=== PATIENT | female | born 1945 | race Caucasian/White ===

== ENCOUNTER 2016-11-25 10:28 | Inpatient (IN) | payer OTHER ==
[2016-11-10 12:07] VITALS: BMI 38.7
--- NOTE | 2016-11-24 10:20 | HP ---
[facility] - Chief Complaint Chief Complaint: left knee pain - Past Medical History Allergies/Adverse Reactions: Allergies Allergy/AdvReac Type Severity Reaction Status Date / Time No Known Allergies Allergy Verified 11/10/16 12:08 - Current Medications Current Medications: Home Medications Medication Instructions Recorded Aspirin Coated [Ecotrin -] 81 mg PO DAILY 11/10/16 Atorvastatin Ca [Lipitor] 10 mg PO DAILY 11/10/16 Diclofenac Sodium [Diclofenac 100 mg PO DAILY 11/10/16 Sodium ER] [place]-3S/Dha/Epa/Fish Oil [Fish 1,200 mg PO DAILY 11/10/16 Oil 1,200 mg Softgel] RX: Lisinopril 5 mg PO DAILY 11/10/16 Ranitidine HCl [Zantac] 150 mg PO BID 11/10/16 Satellite Physical Exam - Physical Examination General Appearance: Well Nourished, Well Developed, Alert & Oriented x3 ENT: Clear Lung: Normal air movement Heart: Regular rate & rhythm Extremities: Other (left knee- + swelling, + ttp, + decr rom, nvi xrays show tricompartmental djd) Neurological: Intact, Alert, Oriented Satellite Impression/Plan - Impression/Plan Impression: left knee djd Operative Procedure: left bushra tkr Date to be Performed: 11/25/16
[2016-11-25] MEDS ORDERED: GABAPENTIN 300 MG CAPSULE (FP) PO ONE (11:20)
[2016-11-25] MEDS ORDERED: CEFAZOLIN 2 GM in DEXTROSE 5%-WATER - 50 ML IVPB ONE (11:20)
[2016-11-25] MEDS ORDERED: TRANEXAMIC ACID 1000 MG/10 ML VIAL IVPUSH ONE (11:20)
[2016-11-25] MEDS ORDERED: CELECOXIB 200 MG CAPSULE PO ONE (11:20)
[2016-11-25] MEDS ORDERED: oxyCODONE HCL 10 MG SUSTAINED ACTING TABLET ONE (11:23)
[2016-11-25] MEDS ORDERED: SODIUM CHLORIDE 0.9% P/F 10 ML VIAL IJ ONE (12:28)
[2016-11-25] MEDS ORDERED: ceFAZolin SODIUM 1 GM VIAL ONE (12:28)
[2016-11-25] MEDS ORDERED: DEXAMETHASONE SOD PHOSPHATE/PF 10 MG/ML SDV ONE (12:28)
[2016-11-25] MEDS ORDERED: BUPIVACAINE HCL/PF (5 MG/ML) 30 ML VIAL IJ ONE (12:29)
[2016-11-25] MEDS ORDERED: MIDAZOLAM HCL 2 MG/2 ML SINGLE DOSE VIAL ONE (12:29)
[2016-11-25] MEDS ORDERED: BUPIVACAINE HCL/PF 0.5% (5MG/ML) 10 ML VIAL ONE (14:01)
[2016-11-25] MEDS ORDERED: MAG HYDROX/AL HYDROX/SIMETH 30 ML UNIT-DOSE CUP PO PRN (16:22)
[2016-11-25] MEDS ORDERED: ONDANSETRON 4 MG/2 ML VIAL IVPB PRN (16:22)
[2016-11-25] MEDS ORDERED: MAGNESIUM HYDROX 2400MG/30ML ORAL SUSPENSION 30 ML CUP PO PRN (16:22)
--- NOTE | 2016-11-25 16:25 | OP ---
Operative Note - Note: Operative Date: 11/25/16 (vanda) Pre-Operative Diagnosis: left knee djd Operation: left bushra tkr Post-Operative Diagnosis: Same as Pre-op Surgeon: Carlos Larios Dispatcher Tugboat: Obinna Hogue Anesthesiologist/BREAD BAKER: Kait Williamson Anesthesia: Spinal, Local Specimens Removed: bone fragments Estimated Blood Loss (mls): 50 (tourniquet) Operative Report Dictated: Yes
[2016-11-25] MEDS ORDERED: LACTATED RINGERS SOLUTION 1,000 ML IV SCH (16:30)
[2016-11-25] MEDS ORDERED: oxyCODONE HCL 5 MG TABLET PO PRN (16:53)
[2016-11-25] MEDS: ACETAMINOPHEN 325 MG TABLET (FP) PO SCH ×2 (18:00→22:05)
[2016-11-25] MEDS ORDERED: ACETAMINOPHEN 325 MG TABLET (FP) ONE (18:13)
[2016-11-25] MEDS: CEFAZOLIN 2 GM in DEXTROSE 5%-WATER - 50 ML IVPB SCH (20:20)
[2016-11-25] MEDS: oxyCODONE HCL 5 MG TABLET PO PRN (21:58)
[2016-11-25] MEDS: SENNOSIDES/DOCUSATE COMBO (SENNA PLUS) TABLET (UD) PO SCH (21:58)
[2016-11-25] MEDS: ATORVASTATIN CA 10 MG TABLET (FP) PO SCH (21:59)
[2016-11-25] MEDS: GABAPENTIN 300 MG CAPSULE (FP) PO SCH (21:59)
[2016-11-25] MEDS: oxyCODONE HCL 10 MG SUSTAINED ACTING TABLET PO SCH (21:59)
[2016-11-26] MEDS ORDERED: ACETAMINOPHEN 325 MG TABLET (FP) ONE (03:41)
[2016-11-26] MEDS: CEFAZOLIN 2 GM in DEXTROSE 5%-WATER - 50 ML IVPB SCH (03:50)
[2016-11-26] MEDS: ACETAMINOPHEN 325 MG TABLET (FP) PO SCH ×3 (06:24→22:36)
--- NOTE | 2016-11-26 07:37 | PN ---
Progress Note (short form) - Note Progress Note: Ortho Pt seen and examined s/p left bushra tkr pod #1 Selected Entries 11/26/16 04:00 Temperature 98.1 F Pulse Rate 81 Respiratory 19 Rate Blood Pressure 130/64 dressing c/d/i, calf soft, nt rom 0-40, nvi cbc pending a/p PT dvt ppx pain control d/c home tomorrow if stable
[2016-11-26] MEDS: ASPIRIN 325 MG TABLET PO SCH (08:22)
[2016-11-26] MEDS: oxyCODONE HCL 5 MG TABLET PO PRN (08:28)
[2016-11-26 08:59] LABS: MCH 28.7 pg (25.7-33.7); MCHC 33.1 g/dl (32.0-36.0); MEAN CELL VOLUME 86.6 fl (80-96); MEAN PLT VOLUME 8.9 fl (7.5-11.1); PLATELET COUNT 291 K/MM3 (134-434); RDW 13.9 % (11.6-15.6); WHITE BLOOD COUNT 9.7 K/mm3 (4.0-10.8)
--- NOTE | 2016-11-26 08:59 | SPEC ---
DATE OF OPERATION: 11/25/2016 DATE OF DICTATION: 11/26/2016 PREOPERATIVE DIAGNOSIS: Degenerative joint disease, left knee. POSTOPERATIVE DIAGNOSIS: Degenerative joint disease, left knee. PROCEDURE: Left total knee replacement with robotic-assisted navigation (MAKOplasty). SURGICAL ATTENDING: Carlos Larios MD CHICKEN PICKER: KIMMIE Jameson ANESTHESIA: Spinal and regional. CLOSURE: A Triathlon knee system with a 3 femur, a 3 tibia, a 13 TS polyethylene, a 32 patella. A number 1 Vicryl fascia, 0 and 2-0 for subcutaneous, and 3-0 Monocryl subcuticular with skin glue for skin. ESTIMATED BLOOD LOSS: Negligible. TOURNIQUET TIME: Approximately 90 minutes. COMPLICATIONS: No complications CONDITION: To recovery room in stable condition. DESCRIPTION OF PROCEDURE: Patient was taken to the operating room on November 25, 2016. Regional and spinal anesthesia were administered by the anesthesiologist. IV antibiotics and TXA were administered prophylactically prior to the case. A well-padded pneumatic tourniquet was placed on the left proximal thigh. The left lower extremity was prepped and draped in the usual sterile fashion. An approximately 12-cm midline incision centered over the patella was incised. Hemostasis was achieved with Bovie cautery. Sharp dissection was carried down to the level of the extensor mechanism the procedure. The medial parapatellar arthrotomy was then performed. The patella was inverted and the knee was flexed up to 90 degrees. Subperiosteal dissection was performed on the anteromedial proximal tibia until the knee was able to be brought forward. This was facilitated by taking the ACL, the PCL, and the medial and lateral menisci. A checkpoint was malleted into the medial femoral condyle and into the anteromedial proximal tibia. Through two small stab incisions in the mid femur and two in the mid tibia, two bicortical pins were drilled, achieving excellent height. Two of these pins were attached to the navigation arrays. The knee was then registered with the navigation device by rotating the hip to ascertain the center of rotation of the hip with points on both the medial and lateral malleoli and multiple points on both the femur and on the tibia. Excellent registration was confirmed by "popping the bubbles". At this time, the osteophytes on the edges of the proximal tibia both medially and laterally, as well as on the medial lateral femoral condyles underneath the collateral ligaments were debrided. The knee was stressed in extension and in flexion to confirm good gaps. The virtual positions of the components were then optimized in order to have a balanced knee, both in extension and in 90 degrees of flexion. The sizes of the components were also optimized to get good coverage over both the tibia and the femur and to produce equal gaps in extension and flexion with the appropriate amount of external rotation of the femur, the appropriate amount of flexion of the femoral component and the appropriate slope on the tibial component. At this time, the robot was brought into the field and registered. The robot was used to cut the proximal tibia and to make all the cuts on the distal femur. The bone was then removed. A spacer block in extension and flexion was used to confirm equal balancing of the component in both extension and 90 degrees of flexion. The box for the posterior cruciate sacrificing component was then performed and a trial component on the femur and tibia was applied. The femoral component was clipped into place with the appropriate external rotation. This was confirmed by the navigation device, ensuring the appropriate position of the tibial component on the proximal tibia. The patella was calipered for thickness and osteotomized at the appropriate level. A lollipop was used to drill the three lugholes in the patella and then a trial component was applied. The knee was taken through a range of motion and found to have excellent tracking of the patella from full extension to full flexion, with good stability, varus/valgus throughout range of motion. The trial components were then removed. Before removing the tibial tray, the keyhole was made. The knee was then thoroughly irrigated with antibiotic irrigation. The real components were then cemented in, using modern generation cement techniques with antibiotic cement and pressurization. After the cement was hardened, the knee was thoroughly inspected to remove all excess cement. The real polyethylene component was then clipped into place. Again, range of motion, stability and tracking were found to be excellent throughout. The knee was then pulse antibiotic irrigated and dried. Vancomycin powder was placed into the knee. The checkpoints were removed. The medial parapatellar arthrotomy was then closed using number 1 Vicryl interrupted suture. The knee was again taken through range of motion and found to have no undue tension on the repair and good tracking throughout. The subcutaneous was closed with 0 and 2-0 Vicryl and 3-0 Monocryl subcuticular for skin with skin glue. The pins were removed in the femur and the tibia and pulse antibiotic irrigated and closed with 4-0 undyed Vicryl. Sterile Aquacel dressing followed by a Leo dressing was applied. The tourniquet was then deflated. One more dose of TXA was administered at the end of the case. The patient was awakened from anesthesia and transferred to the recovery room in stable condition. X-rays revealed good position of the components. There were no complications. Estimated blood loss was negligible. Total tourniquet time was approximately 90 minutes. Haylee [id number]
[2016-11-26] MEDS: oxyCODONE HCL 10 MG SUSTAINED ACTING TABLET PO SCH ×2 (10:06→22:37)
[2016-11-26] MEDS: SENNOSIDES/DOCUSATE COMBO (SENNA PLUS) TABLET (UD) PO SCH ×2 (10:06→22:36)
[2016-11-26] MEDS: GABAPENTIN 300 MG CAPSULE (FP) PO SCH ×2 (10:06→22:36)
[2016-11-26] MEDS: MULTIVITAMINS (DAILY MVI) TABLET (FP) PO SCH (10:07)
[2016-11-26] MEDS: PANTOPRAZOLE 40 MG TABLET (FP) PO SCH (10:07)
[2016-11-26] MEDS: LISINOPRIL 5 MG TABLET (FP) PO SCH (10:07)
--- NOTE | 2016-11-26 12:55 | PN ---
Progress Note (short form) - Note Progress Note: Anesthesia postop note S/P left total knee replacement, POD#1. Spinal and block. Pat seen and examined. Intact sensory and motor function. Ambulationg. Started PT. VSS No apparent post ansesthesia complications.
[2016-11-26] MEDS: ATORVASTATIN CA 10 MG TABLET (FP) PO SCH (22:36)
[2016-11-27] MEDS: ACETAMINOPHEN 325 MG TABLET (FP) PO SCH ×2 (06:00→10:19)
--- NOTE | 2016-11-27 08:19 | PN ---
Progress Note (short form) - Note Progress Note: Ortho Pt seen and examined s/p left bushra tkr pod #2 Selected Entries 11/27/16 06:35 Temperature 98.6 F Pulse Rate 108 H Respiratory 20 Rate Blood Pressure 108/53 Laboratory Tests 11/26/16 07:35 WBC 9.7 Hgb 11.6 Plt Count 291 dressing c/d/i, calf soft, nt rom 0-40, nvi a/p PT dvt ppx pain control d/c home today f/u in 1 week
--- NOTE | 2016-11-27 08:20 | DS ---
Physical Examination Vital Signs: Vital Signs Temperature 98.6 F 11/27/16 06:35 Pulse Rate 108 H 11/27/16 06:35 Respiratory Rate 20 11/27/16 06:35 Blood Pressure 108/53 11/27/16 06:35 O2 Sat by Pulse Oximetry (%) 98 11/27/16 06:35 Labs: CBC, BMP 11/26/16 07:35 Discharge Summary Reason For Visit: OSTEOARTHRITIS Procedures: Principal: s/p left bushra tkr Hospital Course: admitted for elective left bushra tkr, uneventful post-op, stable for d/c Condition: Good - Instructions Diet, Activity, Other Instructions: Post-op Instructions-Total Knee Replacement Call the office for a follow-up appointment in 1 week - [phone] Aspirin 325mg daily for 6 weeks. Pain medication was sent into your pharmacy. Apply Graduated Compression Stockings (TEDs) to both lower extremities- remove daily for hygiene ONLY Apply Sequential Compression Device (SCDs) to both Lower extremities remove for PT and hygiene ONLY Apply cold packs to affected area for 15 minutes every 2 hours. Physical Therapist will come to your home for the first 5 days. You will be set up with outpatient PT at your first post-operative visit. Patient may ambulate as tolerated-encourage self care (at least every 2-3 hours while awake) with walker or cane Maintain Aquacel (waterproof) dressing to operative wound (will be removed by surgeon at first office visit) Shower with Aquacel dressing in place-if Aquacel integrity compromised, remove and apply dry sterile dressing and notify Orthopedist. DO NOT SHOWER unless Orthopedists approves without Aquacel dressing CONTACT THE OFFICE FOR ANY CHANGE IN YOUR CONDITION (for example-fever greater than 102 degrees,excessive bleeding from operative site, purulent drainage, severe swelling or pain) GO TO THE EMERGENCY ROOM IF THERE IS A MEDICAL EMERGENCY Knee Precautions: * Keep a rolled towel under affected heel while in bed or chair (to keep knee in extension) * Keep affected leg elevated except during mealtimes * DO NOT PLACE PILLOW UNDER AFFECTED KNEE * If you have any questions, please do not hesitate to call the office - [phone]. Referrals: Carlos Larios MD [Staff Physician] - Disposition: VNS/HOME HEALTH CARE - Home Medications Comprehensive Discharge Medication List: Ambulatory Orders Atorvastatin Ca [Lipitor] 10 mg PO DAILY 11/10/16 Diclofenac Sodium [Diclofenac Sodium ER] 100 mg PO DAILY 11/10/16 Lisinopril 5 mg PO DAILY 11/10/16 [place]-3S/Dha/Epa/Fish Oil [Fish Oil 1,200 mg Softgel] 1,200 mg PO DAILY Ranitidine HCl [Zantac] 150 mg PO BID 11/10/16 Aspirin [ASA -] 325 mg PO DAILY@0800 tablet 11/25/16 Oxycodone HCl/Acetaminophen [Percocet 5-325 mg Tablet -] 1 - 2 tab PO Q6H #50 tab MDD 8 11/25/16
[2016-11-27 08:35] LABS: MCH 29.3 pg (25.7-33.7); MEAN CELL VOLUME 86.3 fl (80-96); MEAN PLT VOLUME 8.5 fl (7.5-11.1); PLATELET COUNT 273 K/MM3 (134-434); WHITE BLOOD COUNT 13.1 K/mm3 (4.0-10.8)
[2016-11-27] MEDS: ASPIRIN 325 MG TABLET PO SCH (09:00)
[2016-11-27] MEDS: PANTOPRAZOLE 40 MG TABLET (FP) PO SCH (10:18)
[2016-11-27] MEDS: LISINOPRIL 5 MG TABLET (FP) PO SCH (10:19)
[2016-11-27] MEDS: oxyCODONE HCL 10 MG SUSTAINED ACTING TABLET PO SCH (10:19)
[2016-11-27] MEDS: GABAPENTIN 300 MG CAPSULE (FP) PO SCH (10:19)
[2016-11-27] MEDS: SENNOSIDES/DOCUSATE COMBO (SENNA PLUS) TABLET (UD) PO SCH (10:19)
[2016-11-27] MEDS: MULTIVITAMINS (DAILY MVI) TABLET (FP) PO SCH (10:19)
[2016-11-27 10:27] VITALS: BP 114/51; PULSE 102; TEMP 98
--- NOTE | 2016-11-27 16:26 | PATH ---
Surgical Pathology Report Patient Name: MALCOM TAMEZ Med. Rec. #: [id number] /Age/Gender: 1945 (Age: 71) / F Account: [id number] [facility] Taken: 11/25/2016 Received: 11/25/2016 Reported: 11/27/2016 Physicians: Carlos Larios M.D. Specimen(s) Received LEFT KNEE BONES Clinical History Osteoarthritis Final Diagnosis BONE AND SOFT TISSUE, LEFT KNEE, REPLACEMENT: DEGENERATIVE JOINT DISEASE. Electronically Signed Mitchell Carbajal M.D. Gross Description Received in formalin labeled "left knee bones," is a 10.5 x 9.0 x 1.9 cm aggregate of multiple irregular portions of bone and soft tissue. The tibial plateau measures 7.5 x 5.0 x 1.6 cm. There is a 1.2 cm in greatest dimension area of eburnation identified. The articular surfaces are dennis-yellow and focally granular. The underlying trabecular bone is yellow and hard. Angle Shear Set Up Operator sections are submitted in one cassette, following decalcification. 11/26/2016 [facility]11/26/2016
== END 2016-11-27 12:36 | disposition home health service (06) | DRG 470 ==
LOC: FM/S 10:28
PROVIDERS: ADMIT Orthopaedic Surgery; ATTEND Orthopaedic Surgery
PROC: 8E0Y0CZ Robotic Assisted Procedure of Lower Extremity, Open Approach (ICD-10-PCS; 2016-11-25)
PROC: 0SRD0J9 Replacement of Left Knee Joint with Synthetic Substitute, Cemented, Open Approach (ICD-10-PCS; principal; 2016-11-25 14:40)
DX: M17.12 Unilateral primary osteoarthritis, left knee (principal); K21.9 Gastro-esophageal reflux disease without esophagitis; E66.01 Morbid (severe) obesity due to excess calories; Z68.38 Body mass index [BMI] 38.0-38.9, adult; I10 Essential (primary) hypertension; E78.5 Hyperlipidemia, unspecified
CPT/HCPCS: 36415; 73560-TC-LT; 85027; 88305-TC; 88311-TC; 94010; 94760; 97116-GP; 97162-GP

== ENCOUNTER 2017-10-06 05:43 | Inpatient (IN) | payer OTHER ==
[2017-09-28 10:15] VITALS: BMI 40.1
[2017-10-06] MEDS ORDERED: CEFAZOLIN 2 GM/D5W 2 GM/50 ML ML IVPB ONE (06:12)
[2017-10-06] MEDS ORDERED: TRANEXAMIC ACID 1000 MG/10 ML VIAL IVPUSH ONE (06:12)
[2017-10-06] MEDS ORDERED: GABAPENTIN 300 MG CAPSULE (FP) PO ONE (06:12)
[2017-10-06] MEDS ORDERED: CELECOXIB 200 MG CAPSULE PO ONE (06:12)
[2017-10-06] MEDS ORDERED: GABAPENTIN 300 MG CAPSULE (FP) ONE (06:15)
[2017-10-06] MEDS ORDERED: CELECOXIB 200 MG CAPSULE ONE (06:16)
[2017-10-06] MEDS ORDERED: VANCOMYCIN 1,000 MG VIAL (RESTRICTED TO ID ONLY) ONE (07:21)
[2017-10-06] MEDS ORDERED: ceFAZolin SODIUM 1 GM VIAL ONE (07:21)
[2017-10-06] MEDS ORDERED: BUPIVACAINE LIPOSOME/PF (EXPAREL) 266 MG/20 ML VIAL ONE (07:27)
[2017-10-06] MEDS ORDERED: MIDAZOLAM HCL 2 MG/2 ML SINGLE DOSE VIAL ONE (07:27)
[2017-10-06] MEDS ORDERED: SODIUM CHLORIDE 0.9% P/F 10 ML VIAL IJ ONE (07:27)
[2017-10-06] MEDS ORDERED: BUPIVACAINE HCL/PF (5 MG/ML) 30 ML VIAL IJ ONE (07:27)
[2017-10-06] MEDS ORDERED: DEXAMETHASONE SOD PHOSPHATE/PF 10 MG/ML SDV ONE (07:27)
--- NOTE | 2017-10-06 07:54 | HP ---
[facility]ellite [facility] - Chief Complaint Chief Complaint: right knee pain - Past Medical History Allergies/Adverse Reactions: Allergies Allergy/AdvReac Type Severity Reaction Status Date / Time No Known Allergies Allergy Verified 09/28/17 10:08 - Current Medications Current Medications: Home Medications Medication Instructions Recorded Atorvastatin Ca [Lipitor] 10 mg PO Q2D 11/10/16 Lisinopril 5 mg PO DAILY 11/10/16 Ranitidine HCl [Zantac] 150 mg PO BID 11/10/16 Aspirin [ASA -] 81 mg PO DAILY 09/28/17 Ferrous Sulfate [Feosol] 325 mg PO DAILY 09/28/17 Satellite Physical Exam - Physical Examination Vital Signs: Vital Signs Period Temp Pulse Resp BP Sys/Underwood Pulse Ox Last 24 Hr 98.2 F 102 18 135/76 General Appearance: Well Nourished, Well Developed, Alert & Oriented x3 ENT: Clear Lung: Normal air movement Heart: Regular rate & rhythm Extremities: Other (right knee- + swelling, + ttp, decr rom, nvi xrays show grade 4 tricompartmental djd) Neurological: Intact, Alert, Oriented Satellite Impression/Plan - Impression/Plan Impression: right knee djd Operative Procedure: right bushra tkr Date to be Performed: 10/06/17
[2017-10-06] MEDS ORDERED: VANCOMYCIN 1,000 MG VIAL (RESTRICTED TO ID ONLY) IVPB ONE (09:42)
[2017-10-06] MEDS ORDERED: MAGNESIUM HYDROX 2400MG/30ML ORAL SUSPENSION 30 ML CUP PO PRN (10:09)
[2017-10-06] MEDS ORDERED: ONDANSETRON 4 MG/2 ML VIAL IVPUSH PRN (10:09)
[2017-10-06] MEDS ORDERED: MAG HYDROX/AL HYDROX/SIMETH 30 ML UNIT-DOSE CUP PO PRN (10:09)
--- NOTE | 2017-10-06 10:11 | OP ---
Operative Note - Note: Operative Date: 10/06/17 (vanda) Pre-Operative Diagnosis: right knee djd Operation: right bushra tkr Post-Operative Diagnosis: Same as Pre-op Surgeon: Carlos Larios Glass Selector: Obinna Hogue Anesthesiologist/PAYABLE MANAGER: Geremias Mcpherson Anesthesia: Spinal, Local Specimens Removed: bone fragments Estimated Blood Loss (mls): 100 Operative Report Dictated: Yes
[2017-10-06] MEDS ORDERED: LACTATED RINGERS SOLUTION 1,000 ML IV SCH (10:15)
--- NOTE | 2017-10-06 10:20 | SPEC ---
DATE OF OPERATION: 10/06/2017 PREOPERATIVE DIAGNOSIS: Degenerative joint disease, right knee. POSTOPERATIVE DIAGNOSIS: Degenerative joint disease, right knee. PROCEDURE: Right total knee replacement with robotic-assisted navigation (Makoplasty). SURGICAL ATTENDING: Carlos Larios M.D. MANAGER DELIVERY: Pelon Jameson ANESTHESIA: Regional and spinal. CLOSURE: A 4 femur, 4 tibia, 11 polyethylene TS, and a 32 patella, number 1 Vicryl for fascia, 0 and 2-0 for subcutaneous, and 3-0 Monocryl subcuticular with skin glue for skin, 4-0 undyed Vicryl for pin site. ESTIMATED BLOOD LOSS: 100 mL COMPLICATIONS: None. CONDITION: To recovery room in stable condition. DESCRIPTION OF OPERATIVE PROCEDURE: Patient was taken to the operating room on October 06, 2017. Regional and general anesthesia was administered by the anesthesiologist. IV Kefzol and TXA were administered by the anesthesiologist. Well-padded pneumatic tourniquet was placed on the proximal thigh. The right lower extremity was prepped and draped in the usual sterile fashion. The leg was exsanguinated with an Esmarch bandage, and tourniquet was inflated to 275 mmHg. A 12 to 15-cm longitudinal midline incision was incised while centered over the patella. The dissection was carried down to the level of the extensor mechanism with sufficient flaps made to adequately perform the procedure. A medial parapatellar arthrotomy was then performed. We made a cuff of tissue on the patella for later closure. The patella was inverted, the knee was flexed up. The fat pad was excised. The subperiosteal dissection was on the anteromedial proximal tibia around towards the direction of the MCL. The ACL and the PCL were transected and debrided. The meniscal remnants of the medial and lateral meniscus were debrided and removed. This allowed the knee to be able to "be brought forward." The checkpoints were malleted into the tibia and into the femur. Two threaded pins were drilled anteroposteriorly proximal to the knee through the previous incision, through the anterior cortex, then just engaging the posterior cortex. To these pins was assembled the femoral navigation array. One handbreadth below the tibial tubercle, 2 stab incisions were used to drill 2 threaded pins in parallel fashion into the tibia, again through the anterior cortex and just engaging the posterior cortex. To these pins was fastened the tibial arrays. The knee was then registered with the navigation device with center of rotation of the hip, medial and lateral malleoli, both checkpoints, and multiple points on both the femur and the tibia to ensure excellent registration. The navigation device was directed off the "top of the bubbles" on both the femur and the tibia. The navigation passed within less than 0.5 mm to plan. The knee was then thoroughly inspected to remove all osteophytes both medially, laterally, and on the femur and the tibia, and whatever osteophytes were available for dissection. The knee was then taken to extension and to flexion, and stressed in both varus and valgus to assess flexion gaps. The virtual position of the components on the navigation device were then manipulated to optimize the position and to ensure equal gaps in both flexion and extension, and both medially and laterally. The robot was then brought into the field and was registered. The cuts were then made both on the femur and on the tibia as to plan. All osteophytes posteriorly were then removed as well. The gaps were then measured again in flexion and extension to be equal in both flexion and extension and medial and laterally. The femoral notch was then made, as we were doing a posterior stabilizing component, with the appropriate sized box. Trial reduction of the femur achieved excellent [id number] fit. A tibial baseplate of appropriate polyethylene thickness was "floated in the knee." It was ensured to be in the excellent position by navigation devices and was pinned in place. The knee was taken through a range of motion, and found to have excellent stability throughout flexion and extension. The patella was calibrated for thickness and osteotomized down to the appropriate level. The appropriate lollipop was used to drill the lug holes in the patella and the trial button was applied. The knee was taken through a range of motion and found to have excellent tracking of the patella, and patella from full extension to full flexion. Trial components were removed, the keel was punched and drilled, and a sclerotic bone on the tibia was drilled to help with cement interdigitation. The knee was thoroughly irrigated with the pulse antibiotic brand attendant. The real components were then cemented in using monitored arrangement cement techniques with antibiotic cement, and pressurization and extension. After the cement was hardened, the knee was thoroughly inspected to remove any extra cement. The real polyethylene component was then clipped into place. Range of motion, stability, and tracking were as described earlier. The checkpoints and the pins were removed. The knee was thoroughly irrigated with antibiotic irrigation. Vancomycin powder was placed into the knee for antibiotic prophylaxis. The medial parapatellar arthrotomy was then closed using number 1 Vicryl interrupted suture. After closure of the deep layer, the knee was taken through a range of motion, and found to have excellent stability of the patella with no dislocation and no undue tension on the repair. The subcutaneous was pulse antibiotic irrigated, and was then closed with 0 and 2-0, 3-0 Monocryl subcuticular with the skin glue for the skin. The distal tibial pin site was irrigated thoroughly as well and then closed with 4-0 undyed Vicryl. A sterile Aquacel dressing was applied, followed by a Leo dressing. Tourniquet was deflated. Total tourniquet time was approximately 75 minutes. No complications. Patient was awakened from anesthesia and transferred to recovery room in stable condition. Postoperative x-rays revealed excellent position of the components. Haylee [id number]
[2017-10-06] MEDS ORDERED: oxyCODONE HCL 5 MG TABLET PO PRN (11:33)
[2017-10-06] MEDS: ACETAMINOPHEN 325 MG TABLET (FP) PO SCH ×3 (12:08→17:30)
[2017-10-06] MEDS: CEFAZOLIN 2 GM/D5W 2 GM/50 ML ML IVPB SCH (15:57)
[2017-10-06] MEDS: oxyCODONE HCL 5 MG TABLET PO PRN ×2 (15:58→21:43)
[2017-10-06] MEDS: SENNOSIDES/DOCUSATE COMBO (SENNA PLUS) TABLET (UD) PO SCH (21:44)
[2017-10-06] MEDS: GABAPENTIN 300 MG CAPSULE (FP) PO SCH (21:44)
[2017-10-06] MEDS ORDERED: RANITIDINE HCL 150 MG TABLET (FP) PO SCH (22:00)
[2017-10-06] MEDS ORDERED: ATORVASTATIN CA 10 MG TABLET (FP) PO SCH (22:00)
[2017-10-07] MEDS: CEFAZOLIN 2 GM/D5W 2 GM/50 ML ML IVPB SCH
[2017-10-07] MEDS: oxyCODONE HCL 5 MG TABLET PO PRN ×5 (01:30→23:11)
[2017-10-07] MEDS: ACETAMINOPHEN 325 MG TABLET (FP) PO SCH ×5 (05:41→23:10)
[2017-10-07] MEDS: ASPIRIN 325 MG TABLET PO SCH (07:24)
--- NOTE | 2017-10-07 07:45 | PN ---
Progress Note (short form) - Note Progress Note: Ortho Pt seen and examined s/p right bushra tkr pod #1 Selected Entries 10/07/17 05:30 Temperature 98.7 F Pulse Rate 86 Respiratory 20 Rate Blood Pressure 140/68 Laboratory Tests 10/07/17 07:15 WBC Pending Hgb Pending Hct Pending Plt Count Pending dressing c/d/i, calf soft, nt rom 0-40, nvi cbc pending a/p PT dvt ppx pain control d/c home tomorrow if stable
[2017-10-07 09:02] LABS: HEMATOCRIT 38.4 % (32.4-45.2); HEMOGLOBIN 12.8 GM/dl (10.7-15.3); MCHC 33.3 g/dl (32.0-36.0); MEAN PLT VOLUME 8.6 fl (7.5-11.1); PLATELET COUNT 335 K/MM3 (134-434); RBC 4.57 M/mm3 (3.60-5.2); RDW 14.4 % (11.6-15.6); WHITE BLOOD COUNT 13.1 K/mm3 (4.0-10.8)
[2017-10-07] MEDS: PANTOPRAZOLE 40 MG TABLET (FP) PO SCH (09:23)
[2017-10-07] MEDS: LISINOPRIL 5 MG TABLET (FP) PO SCH (09:23)
[2017-10-07] MEDS: SENNOSIDES/DOCUSATE COMBO (SENNA PLUS) TABLET (UD) PO SCH ×2 (09:23→22:14)
[2017-10-07] MEDS: MULTIVITAMINS (DAILY MVI) TABLET (FP) PO SCH (09:23)
[2017-10-07] MEDS: FERROUS SO4 325 MG TABLET (FP) PO SCH (09:23)
[2017-10-07] MEDS: GABAPENTIN 300 MG CAPSULE (FP) PO SCH ×2 (09:23→22:14)
--- NOTE | 2017-10-07 14:35 | PN ---
Progress Note (short form) - Note Progress Note: 72F POD1 s/p R TKR under spinal anesthetic with peripheral nerve blocks for post operative pain relief. Pt states that pain is well controlled, and reports no anesthetic complications. AVSS. Sensory and motor function intact in bilateral lower extremities. Continue current regimen.
[2017-10-07 22:51] VITALS: TEMP 99.1
[2017-10-08] MEDS: oxyCODONE HCL 5 MG TABLET PO PRN (04:37)
[2017-10-08] MEDS: ACETAMINOPHEN 325 MG TABLET (FP) PO SCH ×2 (06:12→12:07)
[2017-10-08 08:15] LABS: HEMATOCRIT 35.8 % (32.4-45.2); HEMOGLOBIN 11.9 GM/dl (10.7-15.3); MCH 28.4 pg (25.7-33.7); MCHC 33.3 g/dl (32.0-36.0); MEAN CELL VOLUME 85.3 fl (80-96); MEAN PLT VOLUME 8.4 fl (7.5-11.1); PLATELET COUNT 287 K/MM3 (134-434); RDW 14.8 % (11.6-15.6); WHITE BLOOD COUNT 15.9 K/mm3 (4.0-10.8)
--- NOTE | 2017-10-08 08:24 | PN ---
Progress Note (short form) - Note Progress Note: Ortho Pt seen and examined s/p right bushra tkr pod #2 Selected Entries 10/08/17 10/08/17 06:00 08:00 Temperature 99.1 F Pulse Rate 87 Respiratory 16 Rate Blood Pressure 104/50 Laboratory Tests 10/08/17 07:15 WBC Pending Hgb Pending Hct Pending Plt Count Pending dressing c/d/i, calf soft, nt rom 0-40, nvi a/p PT dvt ppx pain control d/c home today f/u in 1 week
--- NOTE | 2017-10-08 08:25 | DS ---
Physical Examination Vital Signs: Vital Signs Temperature 99.1 F 10/08/17 06:00 Pulse Rate 87 10/08/17 08:00 Respiratory Rate 16 10/08/17 08:00 Blood Pressure 104/50 10/08/17 08:00 O2 Sat by Pulse Oximetry (%) 93 L 10/08/17 06:00 Discharge Summary Reason For Visit: OSTEOARTHRITIS Procedures: Principal: s/p right bushra tkr Hospital Course: admitted for elective right bushra tkr, uneventful post-op, stable for d/c Condition: Good - Instructions Diet, Activity, Other Instructions: Post-op Instructions-Total Knee Replacement Call the office for a follow-up appointment in 1 week - [phone] Aspirin 325mg daily for 6 weeks. Pain medication was sent into your pharmacy. Apply Graduated Compression Stockings (TEDs) to both lower extremities- remove daily for hygiene ONLY Apply Sequential Compression Device (SCDs) to both Lower extremities remove for PT and hygiene ONLY Apply cold packs to affected area for 15 minutes every 2 hours. Physical Therapist will come to your home for the first 5 days. You will be set up with outpatient PT at your first post-operative visit. Patient may ambulate as tolerated-encourage self care (at least every 2-3 hours while awake) with walker or cane Maintain Aquacel (waterproof) dressing to operative wound (will be removed by surgeon at first office visit) Shower with Aquacel dressing in place-if Aquacel integrity compromised, remove and apply dry sterile dressing and notify Orthopedist. DO NOT SHOWER unless Orthopedists approves without Aquacel dressing CONTACT THE OFFICE FOR ANY CHANGE IN YOUR CONDITION (for example-fever greater than 102 degrees, excessive bleeding from operative site, purulent drainage, severe swelling or pain) GO TO THE EMERGENCY ROOM IF THERE IS A MEDICAL EMERGENCY Knee Precautions: * Keep a rolled towel under affected heel while in bed or chair (to keep knee in extension) * Keep affected leg elevated except during mealtimes * DO NOT PLACE PILLOW UNDER AFFECTED KNEE * If you have any questions, please do not hesitate to call the office - . Referrals: Carlos Larios MD [Staff Physician] - Disposition: VNS/HOME HEALTH CARE - Home Medications Comprehensive Discharge Medication List: Ambulatory Orders Atorvastatin Ca [Lipitor] 10 mg PO Q2D 11/10/16 Lisinopril 5 mg PO DAILY 11/10/16 Ranitidine HCl [Zantac] 150 mg PO BID 11/10/16 Ferrous Sulfate [Feosol] 325 mg PO DAILY 09/28/17 Aspirin [ASA -] 325 mg PO DAILY@0800 tablet 10/06/17 Oxycodone HCl/Acetaminophen [Percocet 5-325 mg Tablet] 1 - 2 tab PO Q6H #50 tab MDD 8 10/06/17
[2017-10-08] MEDS: ASPIRIN 325 MG TABLET PO SCH (08:28)
[2017-10-08] MEDS: FERROUS SO4 325 MG TABLET (FP) PO SCH (10:28)
[2017-10-08] MEDS: LISINOPRIL 5 MG TABLET (FP) PO SCH (10:29)
[2017-10-08] MEDS: SENNOSIDES/DOCUSATE COMBO (SENNA PLUS) TABLET (UD) PO SCH (10:29)
[2017-10-08] MEDS: GABAPENTIN 300 MG CAPSULE (FP) PO SCH (10:29)
[2017-10-08] MEDS: PANTOPRAZOLE 40 MG TABLET (FP) PO SCH (10:30)
[2017-10-08] MEDS: MULTIVITAMINS (DAILY MVI) TABLET (FP) PO SCH (10:30)
[2017-10-08 15:15] VITALS: BP 108/61; PULSE 82
--- NOTE | 2017-10-09 16:39 | PATH ---
Surgical Pathology Report Patient Name: MALCOM TAMEZ Med. Rec. #: [id number] /Age/Gender: 1945 (Age: 72) / F Account: [id number] Location: [facility] MED-SURG Taken: 10/06/2017 Received: 10/06/2017 Reported: 10/09/2017 Physicians: Carlos Larios M.D. Specimen(s) Received RIGHT KNEE BONES Clinical History Osteoarthritis right knee Final Diagnosis BONE, KNEE, RIGHT, TOTAL KNEE REPLACEMENT MAKOPLASTY: BONE WITH DEGENERATIVE JOINT DISEASE, DENSE FIBROCONNECTIVE TISSUE, FIBROADIPOSE TISSUE, AND REACTIVE SYNOVIUM. Electronically Signed Zakia Mendiola M.D. Gross Description Received in formalin labeled "right knee bones," is a 13.0 x 11.5 x 2.0 cm aggregate of multiple portions of bone and soft tissue. The tibial plateau measures 7.3 x 5.8 x 1.8 cm. There is a 2 cm in greatest dimension area of eburnation identified. The remaining articular surfaces are dennis-yellow and diffusely granular. The underlying trabecular bone is yellow and hard. Mattress Stripper sections are submitted in one cassette, following decalcification. /10/08/201710/08/2017
== END 2017-10-08 14:07 | disposition home health service (06) | DRG 470 ==
LOC: FM/S 05:43
PROVIDERS: ADMIT Orthopaedic Surgery; ATTEND Orthopaedic Surgery
PROC: 8E0Y0CZ Robotic Assisted Procedure of Lower Extremity, Open Approach (ICD-10-PCS; 2017-10-06)
PROC: 0SRC0J9 Replacement of Right Knee Joint with Synthetic Substitute, Cemented, Open Approach (ICD-10-PCS; principal; 2017-10-06 08:00)
DX: M17.11 Unilateral primary osteoarthritis, right knee (principal)
CPT/HCPCS: 36415; 73560-TC-RT-FY; 85027; 88304-TC; 88311-TC; 94010; 94760; 97116-GP; 97162-GP